=== PATIENT | male | born 1945 | race Caucasian/White ===

== ENCOUNTER 2019-11-28 19:24 | Emergency (ER) | payer MEDICARE, OTHER ==
[2019-11-28] MEDS ORDERED: Bupivacaine 0.5% 10 ML VIAL ONE (19:41)
[2019-11-28] MEDS ORDERED: Bupivacaine HCl 0.5%/Epinephrine 1:200,000/PF 30 ml Vial ONE (19:43)
[2019-11-28] MEDS ORDERED: Cephalexin 250 MG CAP ONE (19:58)
[2019-11-28] MEDS ORDERED: Adacel (T-DAP) 0.5 ML SYRINGE ONE (19:58)
--- NOTE | 2019-11-28 20:47 | RAD ---
RIGHT FOREARM TWO VIEWS: 11/28/19 A laceration is seen in the soft tissues on the anteromedial portion of the mid to distal forearm. Th ere does appear to be a small linear opaque foreign body associate with the laceration. The underlyin g bones appear intact. IMPRESSION: Laceration with foreign body. POS: HOME
[2019-11-28] MEDS ORDERED: Ondansetron PF 4 MG/2 ML Vial ONE (23:03)
== END 2019-11-28 20:50 | disposition home or self-care (01) ==
LOC: BURERS 19:24
DX: S51.821A Laceration with foreign body of right forearm, initial encounter (principal); W26.8XXA Contact with other sharp object(s), not elsewhere classified, initial encounter; Z23 Encounter for immunization
CPT/HCPCS: 12002; 90471; 90715; J0670; J2405; J3490